=== PATIENT | male | born 1970 | race Caucasian/White ===

== ENCOUNTER 2020-11-23 09:56 | Emergency (ER) | payer SELFPAY ==
[~2020-11-23] VITALS: Ht 177.8 cm; Wt 85.0 kg
[2020-11-23] MEDS ORDERED: IBUPROFEN 600MG TABLET PO ONE (10:30)
[2020-11-23 10:39] VITALS: BP 144/80
[2020-11-23] MEDS ORDERED: IBUP-2029 PO (11:16)
== END 2020-11-23 11:37 | disposition home or self-care (01) ==
LOC: ER 09:56
DX: S42.032A Displaced fracture of lateral end of left clavicle, initial encounter for closed fracture (principal); V49.49XA Driver injured in collision with other motor vehicles in traffic accident, initial encounter; Y93.89 Activity, other specified; Y92.488 Other paved roadways as the place of occurrence of the external cause
CPT/HCPCS: 29240; 71045; 73030; 99284; A4565